=== PATIENT | male | born 1950 | race Caucasian/White ===

== ENCOUNTER 2024-07-08 13:00 | Emergency (ER) | payer MEDICARE, OTHER, SELFPAY ==
[2024-07-08 13:02] VITALS: BP 158/93
[2024-07-08 14:04] VITALS: BMI 37.2
--- NOTE | 2024-07-08 14:06 | EDRN ---
Pt tripped on carpet cutting his L great toe at base of toenail.
[2024-07-08 14:15] VITALS: BP 148/87
--- NOTE | 2024-07-08 14:46 | EDRN ---
Dr. Saeed in room w/ pt at this time.
--- NOTE | 2024-07-08 15:09 | ED.GENMED ---
Addendum entered and electronically signed by Le Perez PA-C 07/18/24 14:28:
laceration is approx 2 cm prox nail fold
Original Note:
History of Present Illness
General
Chief Complaint: Skin Problem
Source: patient
Exam Limitations: none
Time Seen by Provider: 07/08/24 14:07
Nursing documentation reviewed up to this point in time: agreed with
History of Present Illness
History of Present Illness:
PT IS A 73 Y/O M with h/o drop foot, NIDDM
says he stubbed his L great toe on carpet and he has laceration base of the toenail
has h/o fungal toe nails
doesn't see podiatry
has some chorinc neuropathy
tetanus believed to be UTD
Past History
Past History
ED Past Medical History: HTN, NIDDM and Other (kidney stone, Left foot drop)
ED Past Surgical History: Orthopedic (lumbar surgeries X 2 last Nov) and Other
Social History
Tobacco: Non-smoker
Personal:
Living: with family
Employment: Employed
Family History
Family History: Other ([place])
Review of Systems
Review of Systems
Allergies reviewed?: Yes
All Other Systems: Not applicable
Phy Exam
Physical Exam
Physical Exam:
GENERAL: Alert , in no apparent distress, comfortable at rest
HEAD: NCAT
CV: 2+ DP PULSES B/L
NEUROLOGICAL: Alert and oriented, no focal neuro deficits, , 5/5 strength, diminished sensation L foot; foot drop,
SKIN: Warm and dry,
MUSCULOSKELETAL: L great toe laceration at the epichronium where the prox nail fold is
diffuse onychomycosis
dec sensation diffusely
PSYCH: Normal and appropriate interaction.
Course
Orders/Labs/Results
Orders:
Orders
07/08/24 15:52
CR Toe(s) Min 2 Vw Left Urgent
Comment:
Reason For Exam: toe injury w/ toenail from toe at base
Indicate Which Toe:: Great
07/08/24 16:35
Cephalexin Monohydrate [Keflex] 500 mg PO NOW STA
Vital Signs
Initial and Last Documented VS:
Initial Vital Signs
Temp Pulse Resp BP Pulse Ox
36.7 C 95 18 158/93 98
07/08/24 13:02 07/08/24 13:02 07/08/24 13:02 07/08/24 13:02 07/08/24 13:02
Last Documented Vital Signs
Temp Pulse Resp BP Pulse Ox
36.7 C 87 16 148/87 98
07/08/24 13:02 07/08/24 14:15 07/08/24 14:15 07/08/24 14:15 07/08/24 14:15
Procedures
Laceration Closure
Left First Toe:
Status of Wound: clean
Description of Wound Edges: sharp and flap-well vascularized
Preparation: cleaned with saline
Anesthesia: 1% Lidocaine and Digital-Regional
Revision/Debridement: routine- no revision
Wound exploration: explored to base- no FB
Type of Closure: single layer closure
Skin Closure Material: 4-0 nylon
Number of sutures: 4
MDM/Problems Addressed
Differential Diagnosis Includes:
toe laceration, toe fracture
MDM/Problems Addressed:
73 y/o M
diabetic
chornic foot drop
shoeless and stubbed toe and lacerated at the prox nail fold
the nails all have fungal disease
he formerly was seen by podiatry but not recently
tacked down the toe nail with sutures after irrigatoin
xray indep reviewed, d/w rads ,possible fx diwstal phalanx great toe
abx prophy
tetanus UTD
robin tape
hard sole shoe not necessarily going to help because of his foot drop
return precautions.
*Critical Care Note
Total Time (30-74mins, 75-104mins- exclusive of procedures): Not Applicable
ED Attending Note
-
Portions of this chart may have been created with voice recognition software.� Occasional wrong word or��sound alike� substitutions may have occurred due to the inherent limitations of voice recognition software.
Discharge Plan
Departure
Patient Disposition: Home (Routine Discharge)
Date of Disposition: 07/08/24
Time of Disposition: 16:35
Patient with high blood pressure during this ER visit?: No
Condition: Fair
Covid-19: Not Applicable
Discharge Problem:
Injury of toe, Fracture of toe, Laceration of toe
Instructions: Laceration Repair With Stitches ED, Toe Fracture ED
Prescriptions:
New
cephalexin 500 mg capsule
500 mg PO Q8H Qty: 21 0RF
No Action
atorvastatin 10 MG tablet
10 mg PO DAILY
lisinopril 20 MG tablet
20 mg PO DAILY
gabapentin 100 MG capsule
100 mg PO BID
metformin 500 MG tablet extended release 24 hr
500 mg PO TID
canagliflozin [Invokana] 100 MG tablet
100 mg PO
apixaban [Eliquis] 5 MG tablet
5 mg PO BID Qty: 66 0RF
Rx Instructions:
2 tabs twice daily for 6 days, then 1 tab twice daily.
cephalexin 500 MG capsule
500 mg PO TID Qty: 20 0RF
Referrals:
Deacon Lock MD [Family Provider] - Follow up in 2-3 days
Activity Restrictions/Additional Instructions:
Keep the wound clean and dry, wash it twice a day starting tomorrow with soap and water and then apply Neosporin and a Band-Aid. Robin tape your great toe to your second toe after putting some padding in between to help splint it because you do
have a subtle possible fracture in the distal phalanx of the great toe. You need to follow-up with the columnist/commentator. Please call for an appointment.
You can take Tylenol for pain as needed. To prevent infection you can try Keflex 3 times a day for 7 days. Return for any signs of infection or any concerns. You do also have toenail fungus and need to address this with the columnist/commentator
Interventions
Interventions:
*Risk Screen - Suicide Last Done: 07/08/24 13:02
*General Assessment Last Done: 07/08/24 13:02
*Neglect/Abuse Screening Last Done: 07/08/24 13:02
ED- Fall Risk Assessment Last Done: 07/08/24 14:05
*ED COVID-19 Vaccine History Last Done: 07/08/24 13:02
*Nursing Disposition Last Done: 07/08/24 16:51
ED-Skin Assessment Last Done: 07/08/24 14:03
Discharge Date and Time
Discharge Date/Time: 07/08/24 16:52
Print Language: PORTUGUESE
--- NOTE | 2024-07-08 16:33 | EDRN ---
Pt up and OOB to ambulate from room #34 to BR outside of room w/ cane at this time.
[2024-07-08] MEDS: KEFLEX 500 MG PO (16:45)
== END 2024-07-08 16:52 | disposition home or self-care (01) ==
LOC: EMR 13:00
PROVIDERS: EMERGENCY PHYSICIAN Emergency Medicine; FAMILY PHYSICIAN Family Medicine
DX: S92.425B Nondisplaced fracture of distal phalanx of left great toe, initial encounter for open fracture (principal); W22.09XA Striking against other stationary object, initial encounter; I10 Essential (primary) hypertension
CPT/HCPCS: 12001; 73660; 99283